=== PATIENT | female | born 1955 | race Caucasian/White ===

== ENCOUNTER 2020-11-08 18:40 | Inpatient (IN) | payer OTHER, MEDICARE, SELFPAY ==
[~2020-11-08] VITALS: Ht 165.1 cm; Wt 67.1 kg
[2020-11-08 18:55] VITALS: BP_SYST 154
[2020-11-08] MEDS ORDERED: ALBUTEROL MDI INHALATION 8 GM INH INH ONE (21:00)
[2020-11-08] MEDS ORDERED: IPRATROPIUM BROMIDE 17 mCg/ACTUATION, 12.9 GM AER.W.ADAP INH ONE (21:00)
[2020-11-08] MEDS ORDERED: predniSONE 20 MG TABLET PO ONE (21:00)
[2020-11-08 21:46] LABS: BASOPHILS # (AUTO) 0.2 K/uL (0.0-0.2); BASOPHILS % (AUTO) 1.5 % (0.0-2.0); EOSINOPHILS # (AUTO) 2.3 K/uL (0.0-0.4); EOSINOPHILS % (AUTO) 17.8 % (0.0-4.0); HEMATOCRIT 42.6 % (36-48); LYMPHOCYTES # (AUTO) 3.6 K/uL (1.0-5.5); LYMPHOCYTES % (AUTO) 27.8 % (20.5-51.5); MEAN CORPUSCULAR HEMOGLOBIN 28 pg (27-31); MEAN CORPUSCULAR HGB CONC 33 % (32-36); MEAN CORPUSCULAR VOLUME 84 fL (79.0-98.0); MONOCYTES # (AUTO) 0.8 K/uL (0.0-1.0); MONOCYTES % (AUTO) 6.5 % (1.7-9.3); NEUTROPHILS % (AUTO) 46.4 % (40.0-70.0); PLATELET COUNT (AUTO) 227 K/uL (130-430); RED BLOOD CELL COUNT(AUTO) 5.09 MIL/uL (4.2-6.2); RED CELL DISTRIBUTION WIDTH 12.8 % (9.0-15.0); WHITE BLOOD COUNT (AUTO) 12.9 K/uL (4.8-10.8)
[2020-11-08 21:53] LABS: ANION GAP 8 (5-15); CALCIUM 8.8 mg/dL (8.4-11.0); CHLORIDE 103 mmol/L (98-107); GLUCOSE 93 mg/dL (70-99); POTASSIUM 3.6 mmol/L (3.5-5.1); SODIUM SERUM 138 mmol/L (136-145); UREA NITROGEN, BLOOD 13 mg/dL (8-21)
[2020-11-08 21:57] LABS: GFR AFRICAN AMERICAN 80 mL/min (>90)
[2020-11-08] MEDS ORDERED: ALBUTEROL SULFATE 0.083% 2.5 MG/3 ML VIAL.NEB INH ONE ×2 (22:24→22:28)
[2020-11-08] MEDS ORDERED: IPRATROPIUM BROM 0.5 MG/2.5 ML VIAL.NEB (ATROVENT) INH ONE (22:28)
[2020-11-08] MEDS ORDERED: ALBUTEROL SULFATE 0.083% 2.5 MG/3 ML VIAL.NEB INH SCH (22:30)
[2020-11-08] MEDS ORDERED: *HEPARIN PER PHARMACY XX ONE (23:30)
[2020-11-08] MEDS ORDERED: predniSONE 20 MG TABLET ONE ×2 (23:36→23:40)
[2020-11-09] MEDS ORDERED: ALBUTEROL SULFATE 0.083% 2.5 MG/3 ML VIAL.NEB INH ONE
[2020-11-09] MEDS ORDERED: NACL 0.9% 1,000 ML IV ONE ×2 (01:00)
[2020-11-09] MEDS ORDERED: LEVOFLOXACIN 500 MG/D5W 100 ML IV SCH (01:30)
[2020-11-09] MEDS ORDERED: IPRATROPIUM/ALBUTEROL SULFATE 3 ML AMPUL.NEB (DUONEB) INH PRN (01:30)
[2020-11-09] MEDS ORDERED: LEVOFLOXACIN 500 MG/D5W 100 ML IV ONE (01:52)
[2020-11-09] MEDS ORDERED: methylPREDNISolone SOD SUCC/PF 62.5 MG/ML VIAL IVP SCH (06:00)
[2020-11-09 08:04] VITALS: BP_SYST 154
[2020-11-09 13:16] VITALS: BP_SYST 154
== END 2020-11-09 13:15 | disposition home or self-care (01) | DRG 202 ==
LOC: SED 18:40 → SMU 11-09 01:29
PROVIDERS: ADMIT Internal Medicine Hospice and Palliative Medicine; ATTEND Internal Medicine Hospice and Palliative Medicine
DX: J45.901 Unspecified asthma with (acute) exacerbation (principal); R65.10 Systemic inflammatory response syndrome (SIRS) of non-infectious origin without acute organ dysfunction; D72.10 Eosinophilia, unspecified; Z20.828 Contact with and (suspected) exposure to other viral communicable diseases
CPT/HCPCS: 36415; 36600; 71045; 80048; 82803-TC; 83880; 84484; 85025; 94640; 99285; J1956; J7512; J7613; U0003